=== PATIENT | male | born 1950 | race Caucasian/White ===

== ENCOUNTER 2017-12-31 23:29 | Inpatient (IN) ==
[2017-12-31] MEDS ORDERED: Nitroglycerin 1 INCH/GM PACKET TP ONE (23:38)
[2017-12-31] MEDS ORDERED: Aspirin 81 MG TAB.CHEW PO ONE (23:38)
[2017-12-31] MEDS ORDERED: *HR* Metoprolol 5 MG/5 ML VIAL IVP ONE (23:50)
--- NOTE | 2017-12-31 23:59 | Emergency Department Note ---
Disposition Clinical Impression: Elevated troponin, Hypoxia CHF (congestive heart failure) Qualifiers: Heart failure type: systolic Heart failure chronicity: acute on chronic Qualified Code(s): I50.23 - Acute on chronic systolic (congestive) heart failure Disposition: Admitted As Inpatient Condition: Undetermined Chest Pain HPI - General Chief Complaint: ED Chest Pain Stated Complaint: chest pain Time Seen by Provider: 12/31/17 23:37 Source: patient, EMS Mode of arrival: EMS Limitations: no limitations Vital Signs Reviewed: Yes Nursing Notes Reviewed: Yes - History of Present Illness HPI Narrative: 67-year-old male with a history of COPD, chronic kidney disease stage III, A. fib on Coumadin, GI bleed, CVA, previous MIs, pacemaker/AICD presents to the emergency department via EMS for evaluation having chest pain that started around 7 PM this evening. Patient states that he last few days he has had increase in difficulty in breathing despite using his breathing treatments and inhalers for his COPD, this evening as 7 PM he started having heavy, pressurize chest pain that was a 7/10. He let ago for a while the stated the chest pain did not resolve itself and he was having increased difficulty in breathing so he notified EMS who picked him up. In route patient blood pressure was greater than 200 systolic say he was given 1 nitroglycerin tab sugars chest pain from an 8/10 to a 3/10 and dropped his blood pressure to systolics 140s to systolic 160s. Patient also requiring 4 L of O2 in route and he is not on any oxygen at home. At this time patient came to the ED his chest pain had resolved. Patient denies coughing, fever, chills, nausea, vomiting, diarrhea, edema. Patient states difficulty in breathing has become progressively worse. He states difficulty in breathing at rest alone while he is exerting himself. Notable medications include Lasix, Lipitor, coronary leg, and Coumadin. Pt complaint: chest pain, other Onset (ago): hour(s) Time: 19:00 Duration: constant, gradually worsening Onset: during rest Pain Location: substernal, left chest Severity: now resolved Severity scale (1-10): 0 Quality: tightness, aching, heaviness Improves with: nitroglycerin Treatments prior to arrival chest pain: nitroglycerin, oxygen - Related Data Home Medications Medication Instructions Recorded Confirmed Aspirin Enteric Coated [Aspirin EC] 81 mg PO DAILY 12/30/15 12/30/15 Atorvastatin [Lipitor] 40 mg PO QPM 12/30/15 12/30/15 Carvedilol [Coreg] 12.5 mg PO BID 12/30/15 12/30/15 Docusate [Colace] 100 mg PO BID 12/30/15 12/30/15 Furosemide [Lasix] 40 mg PO BID 12/30/15 12/30/15 Ipratropium/Albuterol Sulfate 2 puff IH QID 12/30/15 12/30/15 [Combivent Respimat Inhal Malo] Quinapril HCl [Accupril] 10 mg PO DAILY 12/30/15 12/30/15 Previous Rx's Medication Instructions Recorded Calcium Polycarbophil [Fibercon] 1,250 mg PO DAILY #60 tablet 01/04/16 Sennosides/Docusate Sodium [Senna 1 each PO DAILY #30 tablet 01/04/16 Plus] levoFLOXacin [Levofloxacin] 750 mg PO DAILY #6 tablet 07/25/16 Allergies Allergy/AdvReac Type Severity Reaction Status Date / Time nitroglycerin AdvReac Hypotension Verified 12/30/15 14:26 All systems ED: reviewed and negative except as stated. Review of Systems: As Per HPI Chest Pain PMH - Past Medical History Medical history: Reports: CHF, coronary artery disease, CVA, hypertension, myocardial infarction, renal disease Psychiatric history: Reports: no psych history - Social History Smoking Status: Former smoker Alcohol use: Reports: none Drug use: Reports: none Physical Exam - General Limitations: no limitations General appearance: alert, in no apparent distress - Head Head exam: atraumatic, normocephalic, normal inspection - Eye Eye exam: Present: normal appearance, PERRL, EOMI - ENT ENT exam: mucous membranes moist - Neck Neck exam: Present: normal inspection, full ROM, trachea midline - Chest Chest inspection: Present: normal inspection, symmetric chest wall rise - Respiratory Respiratory exam: Present: normal lung sounds bilaterally, respiratory distress , accessory muscle use, prolonged expiratory phase - Expanded Respiratory Exam Location: decreased breath sounds: Left, Right, Lower - Cardiovascular Cardiovascular exam: Present: tachycardia, irregular rhythm - Abdominal Exam Abdominal exam: Present: soft, Non-Tender, normal bowel sounds, mass. Absent: tenderness - Expanded Lower Extremity Exam Neurovascular/Tendon exam: Present: normal capillary refill. Absent: pulse deficit - Back Exam Back exam: Present: normal inspection, full ROM. Absent: tenderness - Neurological Exam Neurological exam: Present: alert, oriented X3 - Psychiatric Psychiatric exam: Present: normal affect, normal mood - Skin Skin exam: Present: warm, dry, intact, normal color Course Course Narrative: 67-year-old male in moderate amount of respiratory distress. Patient noted to only speak 3 or 4 words with each respiration. At this time patient is not complaining of chest pain, however blood pressure remains hypertensive, heart rate mildly tachycardic at 111, irregular, no peripheral edema. EKG shows A. fib RVR without any significant changes from previous EKG. Patient noted to be on 4 L nasal cannula 97% O2. Lungs clear, diminished. Abdomen with a large round and protuberant fluctuants area. Bowel sounds 4. Concern for NC, pneumonia, respiratory failure, PE despite Coumadin usage. We will obtain laboratory work, chest x-ray, CT of abdomen and pelvis reevaluate. Treat with aspirin, Nitropaste. Patient on Coumadin 4 mg daily already. - Reevaluation(s) Reevaluation #1: Patient was placed on BiPAP and within 20 minutes states he is feeling considerably better. We are still pending several labs. Noted with INR subtherapeutic at 1.6, no systemic infection noted as patient does not have a white count or shift. Continue depends CT abdomen and pelvis as well as chest x -ray BMP, troponins, rest of labs. Time: 00:30 Reevaluation #2: Troponin returns 0.06, CT abdomen and pelvis shows ventral hernia and obesity such a lower lobes, chest x-ray shows obesities with possible pneumonia if clinically correlated. Heart rate continues to range from 96-102, blood pressure come considerably better after application of Nitropaste. Patient tolerating BiPAP well states feels considerably better continues to deny chest pain. We will initiate heparin drip due to elevated troponin and sub- therapeutic Coumadin. Spoke with patient regarding need for admission for continuing monitoring. Patient agreeable. CHF/hypoxia, elevated troponin. Spoke with hospitalist who is agreeable to take patient for inpatient admission. Dr. Doe is had one-on-one face time with patient is agreeable plan of care. Time: 01:32 Vital Signs Temperature 98.2 F 12/31/17 23:31 Pulse Rate 119 12/31/17 23:31 Respiratory Rate 20 12/31/17 23:31 Blood Pressure 197/136 12/31/17 23:31 O2 Sat by Pulse Oximetry 95 12/31/17 23:31 Temperature 98 F 01/01/18 04:48 Pulse Rate 109 01/01/18 02:45 Respiratory Rate 17 01/01/18 03:30 Blood Pressure 123/95 01/01/18 02:45 O2 Sat by Pulse Oximetry 97 01/01/18 03:30 Oxygen Delivery Oxygen Delivery Room Air Chest Pain - Differential Diagnosis Likely: unstable angina pectoris, atypical chest pain, chest pain. Unlikely: fracture of rib, pneumothorax, stable angina, st elevation myocardial infraction - Medical Records Medical records reviewed: Yes I reviewed the patient's medical records. - Lab Data Lab results reviewed: Yes I reviewed the patient's lab results. Result diagrams: 12/31/17 23:58 12/31/17 23:38 Lab Results 12/31/17 12/31/17 12/31/17 Range/Units 23:38 23:58 23:58 WBC (4.3-11.1) K/mcL RBC (4.19-5.50) M/mcL Hgb (12.9-16.9) g/dL Hct (37.5-50.1) % MCV (83.0-100.0) fL MCH (28.0-33.3) pg MCHC (31.6-35.5) g/dL RDW (11.5-14.5) % Plt Count (140-400) K/mcL MPV (9.4-12.4) fL Immature Gran % (0-4) % Seg Neutrophils % % Lymphocytes % % Monocytes % % Eosinophils % % Basophils % % Neutrophils # (1.6-8.9) K/mcL Lymphocytes # (0.6-4.6) K/mcL Monocytes # (0.0-1.3) K/mcL Eosinophils # (0.0-0.6) K/mcL Basophils # (0.0-0.2) K/mcL PT 17.5 H (9.4-12.1) Seconds INR 1.6 APTT 29.7 (26.0-36.0) Seconds D-Dimer 1218 H (0-500) ng/mLFEU VBG pH (7.32-7.42) pH Units VBG pCO2 (41-51) mmHg VBG pO2 (25-50) mmHg VBG HCO3 (21-27) mEq/L Sodium 140 (136-145) mEq/L Potassium 4.6 (3.5-5.1) mEq/L Chloride 104 (98-107) mEq/L Carbon Dioxide 27 (23-29) mEq/L BUN 28 H (8-23) mg/dL Creatinine 1.58 H (0.70-1.30) mg/dL Est GFR ( Amer) 53 L (> 60) Est GFR (Non-Af Amer) 44 L (> 60) BUN/Creatinine Ratio 18 (6-26) Glucose 148 H (70-105) mg/dL Calculated Osmolality 298 (280-300) Lactic Acid (0.5-2.2) mmol/L Calcium 9.1 (8.6-10.3) mg/dL Total Bilirubin 1.1 H (0.3-1.0) mg/dL Direct Bilirubin 0.2 (0.0-0.2) mg/dL Indirect Bilirubin 0.9 (0.0-1.2) mg/dL AST 36 (13-39) Units/L ALT 29 (7-52) Units/L Alkaline Phosphatase 100 (34-104) Units/L Troponin I (< 0.04) ng/mL B-Natriuretic Peptide 477 H (Less than 100) pg/mL Serum Total Protein 7.4 (6.4-8.9) g/dL Albumin 4.2 (3.5-5.7) g/dL Globulin 3.2 (2.4-3.5) g/dL Albumin/Globulin Ratio 1.3 (1.1-2.2) Urine Color (Yellow) Urine Clarity (Clear) Urine pH (5.0-8.0) pH Units Ur Specific [employer] (1.010-1.025) Urine Protein (Neg-Trace) mg/dL Urine Glucose (UA) (Normal) mg/dL Urine Ketones (Negative) mg/dL Urine Blood (Negative) Urine Nitrite (Negative) Urine Bilirubin (Negative) Urine Urobilinogen (Normal) mg/dL Ur Leukocyte Esterase (Negative) Urine Microscopic RBC (0-3) per hpf Urine Microscopic WBC (0-3) per hpf Ur Squamous Epith Cells (None-Few) per lpf Urine Bacteria (None-Few) per hpf Hyaline Casts (None-Few) per lpf Ur Culture Indicated? (NO) 12/31/17 12/31/17 12/31/17 Range/Units 23:58 23:58 23:58 WBC 8.3 (4.3-11.1) K/mcL RBC 4.79 (4.19-5.50) M/mcL Hgb 14.2 (12.9-16.9) g/dL Hct 42.7 (37.5-50.1) % MCV 89.1 (83.0-100.0) fL MCH 29.6 (28.0-33.3) pg MCHC 33.3 (31.6-35.5) g/dL RDW 15.9 H (11.5-14.5) % Plt Count 197 (140-400) K/mcL MPV 10.6 (9.4-12.4) fL Immature Gran % 0.5 (0-4) % Seg Neutrophils % 73.6 % Lymphocytes % 12.6 % Monocytes % 9.3 % Eosinophils % 3.2 % Basophils % 0.8 % Neutrophils # 6.1 (1.6-8.9) K/mcL Lymphocytes # 1.0 (0.6-4.6) K/mcL Monocytes # 0.8 (0.0-1.3) K/mcL Eosinophils # 0.3 (0.0-0.6) K/mcL Basophils # 0.1 (0.0-0.2) K/mcL PT (9.4-12.1) Seconds INR APTT (26.0-36.0) Seconds D-Dimer (0-500) ng/mLFEU VBG pH (7.32-7.42) pH Units VBG pCO2 (41-51) mmHg VBG pO2 (25-50) mmHg VBG HCO3 (21-27) mEq/L Sodium (136-145) mEq/L Potassium (3.5-5.1) mEq/L Chloride (98-107) mEq/L Carbon Dioxide (23-29) mEq/L BUN (8-23) mg/dL Creatinine (0.70-1.30) mg/dL Est GFR ( Amer) (> 60) Est GFR (Non-Af Amer) (> 60) BUN/Creatinine Ratio (6-26) Glucose (70-105) mg/dL Calculated Osmolality (280-300) Lactic Acid 1.4 (0.5-2.2) mmol/L Calcium (8.6-10.3) mg/dL Total Bilirubin (0.3-1.0) mg/dL Direct Bilirubin (0.0-0.2) mg/dL Indirect Bilirubin (0.0-1.2) mg/dL AST (13-39) Units/L ALT (7-52) Units/L Alkaline Phosphatase (34-104) Units/L Troponin I 0.06 H* (< 0.04) ng/mL B-Natriuretic Peptide (Less than 100) pg/mL Serum Total Protein (6.4-8.9) g/dL Albumin (3.5-5.7) g/dL Globulin (2.4-3.5) g/dL Albumin/Globulin Ratio (1.1-2.2) Urine Color (Yellow) Urine Clarity (Clear) Urine pH (5.0-8.0) pH Units Ur Specific [employer] (1.010-1.025) Urine Protein (Neg-Trace) mg/dL Urine Glucose (UA) (Normal) mg/dL Urine Ketones (Negative) mg/dL Urine Blood (Negative) Urine Nitrite (Negative) Urine Bilirubin (Negative) Urine Urobilinogen (Normal) mg/dL Ur Leukocyte Esterase (Negative) Urine Microscopic RBC (0-3) per hpf Urine Microscopic WBC (0-3) per hpf Ur Squamous Epith Cells (None-Few) per lpf Urine Bacteria (None-Few) per hpf Hyaline Casts (None-Few) per lpf Ur Culture Indicated? (NO) 01/01/18 01/01/18 Range/Units 00:09 00:10 WBC (4.3-11.1) K/mcL RBC (4.19-5.50) M/mcL Hgb (12.9-16.9) g/dL Hct (37.5-50.1) % MCV (83.0-100.0) fL MCH (28.0-33.3) pg MCHC (31.6-35.5) g/dL RDW (11.5-14.5) % Plt Count (140-400) K/mcL MPV (9.4-12.4) fL Immature Gran % (0-4) % Seg Neutrophils % % Lymphocytes % % Monocytes % % Eosinophils % % Basophils % % Neutrophils # (1.6-8.9) K/mcL Lymphocytes # (0.6-4.6) K/mcL Monocytes # (0.0-1.3) K/mcL Eosinophils # (0.0-0.6) K/mcL Basophils # (0.0-0.2) K/mcL PT (9.4-12.1) Seconds INR APTT (26.0-36.0) Seconds D-Dimer (0-500) ng/mLFEU VBG pH 7.42 (7.32-7.42) pH Units VBG pCO2 44 (41-51) mmHg VBG pO2 104 H (25-50) mmHg VBG HCO3 29 H (21-27) mEq/L Sodium (136-145) mEq/L Potassium (3.5-5.1) mEq/L Chloride (98-107) mEq/L Carbon Dioxide (23-29) mEq/L BUN (8-23) mg/dL Creatinine (0.70-1.30) mg/dL Est GFR ( Amer) (> 60) Est GFR (Non-Af Amer) (> 60) BUN/Creatinine Ratio (6-26) Glucose (70-105) mg/dL Calculated Osmolality (280-300) Lactic Acid (0.5-2.2) mmol/L Calcium (8.6-10.3) mg/dL Total Bilirubin (0.3-1.0) mg/dL Direct Bilirubin (0.0-0.2) mg/dL Indirect Bilirubin (0.0-1.2) mg/dL AST (13-39) Units/L ALT (7-52) Units/L Alkaline Phosphatase (34-104) Units/L Troponin I (< 0.04) ng/mL B-Natriuretic Peptide (Less than 100) pg/mL Serum Total Protein (6.4-8.9) g/dL Albumin (3.5-5.7) g/dL Globulin (2.4-3.5) g/dL Albumin/Globulin Ratio (1.1-2.2) Urine Color Yellow (Yellow) Urine Clarity Clear (Clear) Urine pH 6.5 (5.0-8.0) pH Units Ur Specific [employer] 1.021 (1.010-1.025) Urine Protein 30 H (Neg-Trace) mg/dL Urine Glucose (UA) Normal (Normal) mg/dL Urine Ketones Negative (Negative) mg/dL Urine Blood Negative (Negative) Urine Nitrite Negative (Negative) Urine Bilirubin Negative (Negative) Urine Urobilinogen Normal (Normal) mg/dL Ur Leukocyte Esterase Negative (Negative) Urine Microscopic RBC 3-5 H (0-3) per hpf Urine Microscopic WBC 0-3 (0-3) per hpf Ur Squamous Epith Cells Many H (None-Few) per lpf Urine Bacteria None Seen (None-Few) per hpf Hyaline Casts None Seen (None-Few) per lpf Ur Culture Indicated? NO (NO) - Radiology Data Radiology results reviewed: Yes I reviewed the patient's radiology results. Chest X-Ray 01/01/18 23:38 IMPRESSION: Patchy alveolar opacity bilaterally. Pulmonary edema is primarily considered. Correlate with any clinical evidence of pneumonia. D/ / Ashwin Elias MD / Ashwin Elias MD Interpreting Provider: Ashwin Elias MD Abdomen/Pelvis CT 01/01/18 23:47 IMPRESSION: No acute intra-abdominal abnormality detected. Re- demonstration of a large ventral wall hernia containing nondilated loops of large and small bowel, as well is a portion of the stomach. There is evidence of interlobular septal thickening and ground-glass opacity within the lower lungs. Correlate with clinical evidence of pulmonary edema. D/ / Ashwin Elias MD / Ashwin Elias MD Interpreting Provider: Ashwin Elias MD - EKG Data EKG attestation: Yes I reviewed and interpreted this EKG. EKG results narrative: EKG reveals A. fib with RVR possible anterior septal myocardial infarction of indeterminate age. As a rate 111 and A. fib. Compared to most recent EKG obtained on 04/28 there are no acute changes, anteroseptal myocardial infarction of indeterminate age on this one as well. No sign of significant ST elevation or depression. Interpretation: unchanged when compared to prior tracing (date) Heart Score - Score History: Highly Suspicious EKG: Normal Age: Greater than 65 Risk Factors: Equal/Greater than 3 risk factor or history of atherosclerotic disease Troponin: 1-3x normal limit HEART Score Total: 7 Attestation Statement - Attestation Attestation: I have personally performed a face to face evaluation on this patient. I have reviewed and agree with the care plan. History and Exam by me shows: Findings consistent with dyspnea. Patient has CT scan of the abdomen and pelvis to rule out obstruction due to distended abdomen and this shows nonobstructive in nature. Patient be admitted for further management of chest pain in the setting of dyspnea
[2018-01-01 00:15] LABS: Basophils # 0.1 K/mcL (0.0-0.2); Basophils % 0.8 %; Eosinophils # 0.3 K/mcL (0.0-0.6); Eosinophils % 3.2 %; Hematocrit 42.7 % (37.5-50.1); Hemoglobin 14.2 g/dL (12.9-16.9); Immature Granulocytes % 0.5 % (0-4); Lymphocytes % 12.6 %; Mean Corpuscular HGB Conc 33.3 g/dL (31.6-35.5); Mean Corpuscular Hemoglobin 29.6 pg (28.0-33.3); Mean Corpuscular Volume 89.1 fL (83.0-100.0); Mean Platelet Volume 10.6 fL (9.4-12.4); Monocytes # 0.8 K/mcL (0.0-1.3); Monocytes % 9.3 %; Neutrophils # 6.1 K/mcL (1.6-8.9); Platelet Count 197 K/mcL (140-400); Red Blood Count 4.79 M/mcL (4.19-5.50); Red Cell Distribution Width 15.9 % (11.5-14.5); Segmented Neutrophils % 73.6 %
[2018-01-01 00:17] LABS: VBG HCO3 29 mEq/L (21-27); VBG PCO2 44 mmHg (41-51); VBG PH 7.42 pH Units (7.32-7.42); VBG PO2 104 mmHg (25-50)
[2018-01-01 00:20] LABS: INR 1.6; Prothrombin Time 17.5 Seconds (9.4-12.1)
[2018-01-01 00:23] LABS: Activated Partial Thrombo Time 29.7 Seconds (26.0-36.0)
[2018-01-01 00:26] LABS: Bilirubin,Urine Negative (Negative); Blood,Urine Negative (Negative); Clarity,Urine Clear (Clear); Color,Urine Yellow (Yellow); Glucose,Urine (UA) Normal (Normal); Ketones,Urine Negative (Negative); Leukocyte Esterase,Urine Negative (Negative); Nitrite,Urine Negative (Negative); PH,Urine 6.5 pH Units (5.0-8.0); Protein,Urine 30 mg/dL (Neg-Trace); Specific Gravity,Urine 1.021 (1.010-1.025); Urobilinogen,Urine Normal (Normal)
[2018-01-01 00:29] LABS: Bacteria,Urine None Seen per hpf (None-Few); Hyaline Casts,Urine None Seen per lpf (None-Few); Squamous Epithelial Cell,Urine Many per lpf (None-Few); WBC,Urine 0-3 per hpf (0-3)
[2018-01-01 00:36] LABS: Albumin 4.2 g/dL (3.5-5.7); Albumin/Globulin Ratio 1.3 (1.1-2.2); Bilirubin,Direct 0.2 mg/dL (0.0-0.2); Bilirubin,Indirect 0.9 mg/dL (0.0-1.2); Bilirubin,Total 1.1 mg/dL (0.3-1.0); Calcium 9.1 mg/dL (8.6-10.3); Globulin 3.2 g/dL (2.4-3.5); Potassium 4.6 mEq/L (3.5-5.1); Total Protein 7.4 g/dL (6.4-8.9)
[2018-01-01] MEDS ORDERED: Furosemide 40 MG/4 ML VIAL IVP ONE (01:38)
[2018-01-01] MEDS: Heparin 25,000 UNIT/500 ML D5W 25,000 UNIT/500 ML BAG IVC SCH ×2 (01:45→20:27)
--- NOTE | 2018-01-01 02:06 | Internal Med History&Physical ---
<Abhilash Jean - Last Filed: 01/01/18 02:46> Date of Encounter: 01/01/18 Time of Encounter: 01:53 Internal Medicine - H&P: HPI Chief complaint: chest pain Admitted From: Home Plans for Post Hospital Care: Home History of present illness: Mr. Hickey is a 67 year old male w/ pmh of COPD, CKD3, afib, GI bleed, large abd hernia, TIA, CAD, pacemaker, AICD presents with sharp/pressure chest pain that started at 7 pm while at rest. Pain radiates to back but not up neck or down arm. denies numbness, tingling, nausea, vomiting, diaphoresis. Patient has had pain like this about once a week which has resolved with taking aspirin. Patient took aspirin tonight whcih did not resolve his symptoms. Patient is currently not having chest pain after receiving nitroglycerin in the ED. Patient was seen with Bipap on. Patient was having shortness of breath and was hypoxic. Patient was then placed on bipap. Patient when seen states he's comfortable and not SOB on bipap. Patient is not O2 dependent at home. Past Med Surg Social Fam HX - Past Medical History Medical history: CHF, coronary artery disease, CVA, hypertension, myocardial infarction, renal disease Psychiatric history: no psych history - Social History Smoking Status: Former smoker Smokeless Tobacco Status: No Alcohol use: none Drug use: none - Family History Mother Living Status: Hx Family Cardiac Disorders: Yes (AK) Hx Family Respiratory Disorders: Yes (TB) Father Living Status: Hx Family Respiratory Disorders: Yes (COPD) Internal Medicine - H&P: Meds Aspirin Enteric Coated [Aspirin EC] 81 mg PO DAILY 12/30/15 [History] Atorvastatin [Lipitor] 40 mg PO QPM 12/30/15 [History] Carvedilol [Coreg] 12.5 mg PO BID 12/30/15 [History] Docusate [Colace] 100 mg PO BID 12/30/15 [History] Furosemide [Lasix] 40 mg PO BID 12/30/15 [History] Ipratropium/Albuterol Sulfate [Combivent Respimat Inhal [place]] 2 puff IH QID [History] Quinapril HCl [Accupril] 10 mg PO DAILY 12/30/15 [History] Calcium Polycarbophil [Fibercon] 1,250 mg PO DAILY #60 tablet 01/04/16 [Rx] Sennosides/Docusate Sodium [Senna Plus] 1 each PO DAILY #30 tablet 01/04/16 [Rx] levoFLOXacin [Levofloxacin] 750 mg PO DAILY #6 tablet 07/25/16 [Rx] 3 Allergy/AdvReac Type Severity Reaction Status Date / Time nitroglycerin AdvReac Hypotension Verified 12/30/15 14:26 All Systems PM: A 10-system review of systems was performed and is negative for pertinent findings except as documented above in the HPI. - Constitutional Constitutional: no chills, no excessive sweating, no fatigue, no fever(s), no lethargy, no malaise, no night sweats - EENT Eyes: no change in vision, no discharge, no pain, no photophobia Ears: no ear discharge, no ear pain, no tinnitus Nose, mouth and throat: no dysphagia, no nasal discharge, no neck pain, no sore throat - Cardiovascular Cardiovascular ROS IM: no chest pain, no diaphoresis, no dyspnea, no dyspnea on exertion, no edema, no irregular heart rhythm, no lightheadedness, no orthopnea , no palpitations, no paroxysmal nocturnal dyspnea, no syncope - Respiratory Respiratory: no cough, no dyspnea, no wheezing, no excessive phlegm production - Gastrointestinal Gastrointestinal: no abdominal pain, no diarrhea, no hematemesis, no hematochezia, no melena, no nausea, no vomiting - Musculoskeletal Musculoskeletal ROS IM: no numbness, no tingling - Integumentary Integumentary IM: no rash, no unusual bruising - Neurological Neurological ROS: no confusion, no convulsions, no focal weakness, no numbness, no tingling, no tremor(s) - Hematologic/Lymphatic Hematologic/Lymphatic: no easy bruising - Constitutional Vitals: Temp Pulse Resp BP Pulse Ox 98.2 F 106 18 149/98 97 12/31/17 23:31 01/01/18 01:10 01/01/18 01:10 01/01/18 01:10 01/01/18 01:10 General appearance: Present: cooperative, A&O X 3, pleasant, no acute distress, answers questions appropriately - Head Head exam: Present: atraumatic, normocephalic - Eye Eye exam: Present: PERRL, conjuntiva pink, sclera anicteric Pupils: Present: PERRL - Neck Neck exam general surgery: Present: supple, trachea midline. Absent: lymphadenopathy, thyromegaly - Respiratory Respiratory exam: Absent: accessory muscle use, rales, respiratory distress, rhonchi, wheezes Additional comments: Transmitted breath sounds from bipap - Cardiovascular Cardiovascular exam: Present: irregular rhythm. Absent: diastolic murmur, gallop, JVD, rubs, systolic murmur, tachycardia - GI/Abdominal GI/Abdominal exam: Present: hernia, hypoactive bowel sounds, soft, no peritoneal signs. Absent: distended, rebound, rigid, splenomegaly, tenderness Additional comments: large lower abdominal herniation - Extremities Exam Extremities exam: Present: warm, radial pulses palpable and symmetrical. Absent : calf tenderness, cyanotic, pedal edema - Neurological Exam Neurological exam: Present: CN II-XII intact, oriented X3, no focal deficits. Absent: pronater drift, facial droop, speech deficit - Skin Skin exam: Present: dry, intact Internal Med - H&P Results - Labs CBC & Chem 7: 12/31/17 23:58 12/31/17 23:38 Labs: Short CBC 12/31/17 Range/Units 23:58 WBC 8.3 (4.3-11.1) K/mcL Hgb 14.2 (12.9-16.9) g/dL Hct 42.7 (37.5-50.1) % Plt Count 197 (140-400) K/mcL Neutrophils # 6.1 (1.6-8.9) K/mcL BMP 12/31/17 23:38 Sodium 140 Potassium 4.6 Chloride 104 Carbon Dioxide 27 BUN 28 H Creatinine 1.58 H Glucose 148 H Calcium 9.1 Cardiac Enzymes 12/31/17 Range/Units 23:58 Troponin I 0.06 H* (< 0.04) ng/mL Liver Function 12/31/17 Range/Units 23:38 Total Bilirubin 1.1 H (0.3-1.0) mg/dL Direct Bilirubin 0.2 (0.0-0.2) mg/dL AST 36 (13-39) Units/L ALT 29 (7-52) Units/L Alkaline Phosphatase 100 (34-104) Units/L Albumin 4.2 (3.5-5.7) g/dL Urine 01/01/18 Range/Units 00:09 Urine Color Yellow (Yellow) Urine Clarity Clear (Clear) Urine pH 6.5 (5.0-8.0) pH Units Ur Specific [place] 1.021 (1.010-1.025) Urine Protein 30 H (Neg-Trace) mg/dL Urine Glucose (UA) Normal (Normal) mg/dL - ABG Interpretation ABG results: 01/01/18 00:10 VBG pH 7.42 VBG pCO2 44 VBG pO2 104 H VBG HCO3 29 H - Impressions ITS Impressions Chest X-Ray 01/01/18 23:38 IMPRESSION: Patchy alveolar opacity bilaterally. Pulmonary edema is primarily considered. Correlate with any clinical evidence of pneumonia. D/ / Ashwin Elias MD / Ashwin Elias MD Interpreting Provider: Ashwin Elias MD Abdomen/Pelvis CT 01/01/18 23:47 IMPRESSION: No acute intra-abdominal abnormality detected. Re- demonstration of a large ventral wall hernia containing nondilated loops of large and small bowel, as well is a portion of the stomach. There is evidence of interlobular septal thickening and ground-glass opacity within the lower lungs. Correlate with clinical evidence of pulmonary edema. D/ / Ashwin Elias MD / Ashwin Elias MD Interpreting Provider: Ashwin Elias MD - Assessment and plan (1) NSTEMI (non-ST elevated myocardial infarction) Current Visit: Yes Status: Acute Assessment and plan: see above (2) Acute on chronic kidney failure Current Visit: Yes Status: Acute Assessment and plan: Known CKD3. Cr on admission 1.58, baseline is 1.2. will closely follow, will consult nephro if does not resolve. - renal dose, avoid nephrotoxins - strict I/O Qualifiers: Qualified Code(s): N17.9 - Acute kidney failure, unspecified; N18.3 - Chronic kidney disease, stage 3 (moderate) (3) Chest pain Current Visit: Yes Status: Resolved Assessment and plan: see above. Qualifiers: Chest pain type: unspecified Qualified Code(s): R07.9 - Chest pain, unspecified (4) Chronic atrial fibrillation Current Visit: Yes Status: Chronic Assessment and plan: currently rate controlled but not rhythm controlled. Patient on exam is in afib. (5) Chronic renal disease, stage 3, moderately decreased glomerular filtration rate (GFR) between 30-59 mL/min/1.73 square meter Current Visit: Yes Status: Chronic Assessment and plan: chronic (6) GI bleed Current Visit: Yes Status: Resolved Assessment and plan: known hx of GI bleed. patient hgb is 14.2 on admission, patient is high ris, and will closely follow for symptoms and h/h. Due to heparinization, high risk for GI bleed. Will prophylactically start on Protonix. Qualifiers: GI bleed type/associated pathology: melena Qualified Code(s): K92.1 - Melena (7) Abdominal hernia without obstruction or gangrene Current Visit: Yes Status: Acute Assessment and plan: chronic. patient has multiple surgerical repairs. Large abdominal herniation is stable and does not appear to have bowel Qualifiers: Qualified Code(s): K46.9 - Unspecified abdominal hernia without obstruction or gangrene (8) DVT prophylaxis Current Visit: Yes Status: Acute Assessment and plan: patient is heparinized. (9) COPD (chronic obstructive pulmonary disease) Current Visit: Yes Status: Acute Assessment and plan: currently hypoxic requiring bipap. Patient is currently stable on bipap. - provide respiratory support with O2, bipap, and duoneb Qualifiers: Qualified Code(s): J44.9 - Chronic obstructive pulmonary disease, unspecified (10) Hypertension Current Visit: Yes Status: Acute Assessment and plan: continue home rx Qualifiers: Qualified Code(s): I10 - Essential (primary) hypertension (11) Congestive heart failure Current Visit: Yes Status: Acute Assessment and plan: Patient has known previous AK. Patient has trop of 0.06 and BNP 477. No Ischemic changes on EKG. Presumptive CHF exacerbation vs NSTEMI. Patient does have SOB requiring O2 support, and pulmonary edema on CXR and CT Patient has significant risk factors, MATT score 5-6. Chest pain could also be demand ischemia from COPD/guido. D-Dimer is 1218, low risk will order VQ scan due to GUIDO - Cardiology consult - trend trops - patient was heparinized in ED - no previous echo found, ordered echo - morning labs - cardiac diet - ASA81, O2 support <92%, nitro, BB - patient was given plavix in ED, and ASA 324 in ED - lipid panel - will also treat for CHF: Lasix (closely follow due to current GUIDO) - VQ scan ordered Qualifiers: Heart failure type: systolic Heart failure chronicity: acute on chronic Qualified Code(s): I50.23 - Acute on chronic systolic (congestive) heart failure - Time Spent With Patient Total time spent is greater than 50% in coordination of care (as documented) at patient's floor/unit and/or counseling patient: <Keith Michel - Last Filed: 01/01/18 03:16> Date of Encounter: 01/01/18 Internal Medicine - H&P: HPI History of present illness: Mr. Hickey is a 67 year old male All Systems PM: A 10-system review of systems was performed and is negative for pertinent findings except as documented above in the HPI. - Constitutional Vitals: Temp Pulse Resp BP Pulse Ox 98.2 F 85 18 144/94 97 12/31/17 23:31 01/01/18 02:03 01/01/18 02:03 01/01/18 02:03 01/01/18 02:03 Internal Med - H&P Results - Labs CBC & Chem 7: 12/31/17 23:58 12/31/17 23:38 - Impressions ITS Impressions Chest X-Ray 01/01/18 23:38 IMPRESSION: Patchy alveolar opacity bilaterally. Pulmonary edema is primarily considered. Correlate with any clinical evidence of pneumonia. D/ / Ashwin Elias MD / Ashwin Elias MD Interpreting Provider: Ashwin Elais MD Abdomen/Pelvis CT 01/01/18 23:47 IMPRESSION: No acute intra-abdominal abnormality detected. Re- demonstration of a large ventral wall hernia containing nondilated loops of large and small bowel, as well is a portion of the stomach. There is evidence of interlobular septal thickening and ground-glass opacity within the lower lungs. Correlate with clinical evidence of pulmonary edema. D/ / Ashwin Elias MD / Ashwin Elias MD Interpreting Provider: Ashwin Elias MD - Attending Attestation I have seen and examined this patient independently. I have discussed with resident physician Dr Jean regarding the management plan. Agree with the documentation. Patient presented with left chest discomfort/pain with shortness of breath and desaturation. History of systolic CHF with EF 36%. Patient is on PPM/AICD, beta jaret, and FROY inhibitor. Patient has elevated BNP and chest x-ray shows pulmonary edema. Consider CHF exacerbation. Patient also has chest pain need to rule out ACS/NSTEMI. Patient has elevated d-dimer, however, his symptoms is most likely due to CHF exacerbation. Will continue heparin drip at this point, track 3 sets of troponin. VQ scan in a.m. to rule out PE. Place patient on Lasix, fluid restriction, strict I/O for CHF exacerbation. Closely monitor patient and continue supportive treatment. - Assessment and plan (1) Chest pain Current Visit: Yes Status: Resolved Qualifiers: Chest pain type: unspecified Qualified Code(s): R07.9 - Chest pain, unspecified (2) Chronic renal disease, stage 3, moderately decreased glomerular filtration rate (GFR) between 30-59 mL/min/1.73 square meter Current Visit: Yes Status: Chronic (3) GI bleed Current Visit: Yes Status: Resolved Qualifiers: GI bleed type/associated pathology: melena Qualified Code(s): K92.1 - Melena (4) Chronic atrial fibrillation Current Visit: Yes Status: Chronic (5) Abdominal hernia without obstruction or gangrene Current Visit: Yes Status: Acute Qualifiers: Qualified Code(s): K46.9 - Unspecified abdominal hernia without obstruction or gangrene (6) NSTEMI (non-ST elevated myocardial infarction) Current Visit: Yes Status: Acute (7) DVT prophylaxis Current Visit: Yes Status: Acute (8) Acute on chronic kidney failure Current Visit: Yes Status: Acute Qualifiers: Qualified Code(s): N17.9 - Acute kidney failure, unspecified; N18.3 - Chronic kidney disease, stage 3 (moderate) (9) COPD (chronic obstructive pulmonary disease) Current Visit: Yes Status: Acute Qualifiers: Qualified Code(s): J44.9 - Chronic obstructive pulmonary disease, unspecified (10) Hypertension Current Visit: Yes Status: Acute Qualifiers: Qualified Code(s): I10 - Essential (primary) hypertension (11) Congestive heart failure Current Visit: Yes Status: Acute Qualifiers: Heart failure type: systolic Heart failure chronicity: acute on chronic Qualified Code(s): I50.23 - Acute on chronic systolic (congestive) heart failure - Time Spent With Patient Total time spent is greater than 50% in coordination of care (as documented) at patient's floor/unit and/or counseling patient:
[2018-01-01] MEDS ORDERED: Ondansetron ODT 4 MG TAB.RAPDIS SL PRN (02:24)
[2018-01-01] MEDS ORDERED: Naloxone 0.4 MG/ML INJ IVP PRN (02:24)
[2018-01-01] MEDS ORDERED: Ipratropium/Albuterol Neb 3 ML IH PRN (02:40)
[2018-01-01] MEDS ORDERED: *HR* Metoprolol 5 MG/5 ML VIAL IVP PRN ×2 (02:55→03:21)
[2018-01-01 05:30] LABS: Basophils # 0.1 K/mcL (0.0-0.2); Basophils % 1.1 %; Eosinophils # 0.3 K/mcL (0.0-0.6); Eosinophils % 4.4 %; Hematocrit 41.1 % (37.5-50.1); Hemoglobin 13.7 g/dL (12.9-16.9); Immature Granulocytes % 0.1 % (0-4); Lymphocytes # 1.5 K/mcL (0.6-4.6); Lymphocytes % 20.4 %; Mean Corpuscular HGB Conc 33.3 g/dL (31.6-35.5); Mean Corpuscular Hemoglobin 29.9 pg (28.0-33.3); Mean Corpuscular Volume 89.7 fL (83.0-100.0); Mean Platelet Volume 10.8 fL (9.4-12.4); Monocytes # 0.7 K/mcL (0.0-1.3); Neutrophils # 4.7 K/mcL (1.6-8.9); Platelet Count 182 K/mcL (140-400); Red Blood Count 4.58 M/mcL (4.19-5.50)
[2018-01-01 05:31] LABS: INR 1.7; Prothrombin Time 18.5 Seconds (9.4-12.1)
[2018-01-01 05:46] LABS: Albumin 3.8 g/dL (3.5-5.7); Albumin/Globulin Ratio 1.3 (1.1-2.2); Bilirubin,Total 1.1 mg/dL (0.3-1.0); Calcium 8.6 mg/dL (8.6-10.3); Chol/HDL Ratio 3.8 (0-4.9); Globulin 2.9 g/dL (2.4-3.5); Magnesium 2.2 mg/dL (1.6-2.6); Phosphorous 3.8 mg/dL (2.7-4.5); Potassium 4.2 mEq/L (3.5-5.1); Total Protein 6.7 g/dL (6.4-8.9)
[2018-01-01] MEDS ORDERED: Pantoprazole 40 MG VIAL IVP SCH (06:30)
--- NOTE | 2018-01-01 08:55 | Internal Med Progress Note ---
Date of Encounter: 01/01/18 Time of Encounter: 08:40 - Assessment and plan (1) Congestive heart failure Current Visit: Yes Status: Acute Assessment and plan: Improving cont Lasix 40 IV BID cont BB , ASA and Statin 2D Echo 0 P Strict I & O Qualifiers: Heart failure type: systolic Heart failure chronicity: acute on chronic Qualified Code(s): I50.23 - Acute on chronic systolic (congestive) heart failure (2) Acute and chronic respiratory failure with hypoxia Current Visit: Yes Status: Acute Assessment and plan: Due to CHF exacerbation cont IV diuresis Duoneb PRN (3) Acute pulmonary edema Current Visit: Yes Status: Acute Assessment and plan: Due to CHF cont IV diuresis (4) NSTEMI (non-ST elevated myocardial infarction) Current Visit: Yes Status: Acute Assessment and plan: Trop trending high Placed him on heparin gtt since his INR therapeutic He does have acute possible systolic CHF exacerbation too May get benefit with [facility] Card consulted 2 D Echo - P Cont ASA, BB and Statin Keep him NPO for now Hold on Coumadin for further procedures if needed (5) Chest pain Current Visit: Yes Status: Resolved Assessment and plan: see above. Qualifiers: Chest pain type: unspecified Qualified Code(s): R07.9 - Chest pain, unspecified (6) Chronic renal disease, stage 3, moderately decreased glomerular filtration rate (GFR) between 30-59 mL/min/1.73 square meter Current Visit: Yes Status: Chronic Assessment and plan: CKD-3 Cr at baseline cont close monitoring (7) Chronic atrial fibrillation Current Visit: Yes Status: Chronic Assessment and plan: currently rate controlled BB Coreg Take Coumadin for anti coag (8) Abdominal hernia without obstruction or gangrene Current Visit: Yes Status: Acute Assessment and plan: chronic. patient has multiple surgerical repairs. Large abdominal herniation is stable and does not appear to have bowel Qualifiers: Qualified Code(s): K46.9 - Unspecified abdominal hernia without obstruction or gangrene (9) DVT prophylaxis Current Visit: Yes Status: Acute Assessment and plan: patient is heparinized. (10) Hypertension Current Visit: Yes Status: Acute Assessment and plan: continue home rx Qualifiers: Qualified Code(s): I10 - Essential (primary) hypertension - Time Spent With Patient Total time spent is greater than 50% in coordination of care (as documented) at patient's floor/unit and/or counseling patient: - Subjective Interval history: Mr. Hickey is a 67 year old male w/ pmh of COPD, CKD3, afib, GI bleed, large abd hernia, TIA, CAD, pacemaker, AICD presents with sharp/pressure chest pain while at rest. Pain radiates to back but not up neck or down arm. denies numbness, tingling, nausea, vomiting, diaphoresis. Patient has had pain like this about once a week which has resolved with taking aspirin. Patient took aspirin which did not resolve his symptoms now. However it got resolved last night with nitro. Pt also c/o shortness of breath and b/l LE edema. He denied any CP now. He is A, A, O x 3. Currently on 2 lit O2. Leg edema little better today - Constitutional Vitals: Temp Pulse Resp BP Pulse Ox 98 F 114 22 168/94 95 01/01/18 04:48 01/01/18 06:03 01/01/18 06:03 01/01/18 06:03 01/01/18 06:03 General appearance: Present: cooperative, A&O X 3, pleasant, no acute distress, answers questions appropriately - Head Head exam: Present: atraumatic, normal inspection - Neck Neck exam general surgery: Present: supple - Respiratory Respiratory exam: Present: decreased breath sounds, wheezes. Absent: rales, respiratory distress, rhonchi - Cardiovascular Cardiovascular exam: Present: irregular rhythm, +S1, +S2. Absent: tachycardia - GI/Abdominal GI/Abdominal exam: Present: normal bowel sounds, soft. Absent: rebound, rigid, tenderness - Extremities Exam Extremities exam: Present: pedal edema. Absent: calf tenderness, tenderness - Back Exam Back exam: Absent: CVA tenderness (L), CVA tenderness (R) - Neurological Exam Neurological exam: Present: alert, oriented X3 Internal Medicine: Result - Labs CBC & Chem 7: 01/01/18 05:01 01/01/18 05:01 Labs: Short CBC 01/01/18 Range/Units 05:01 WBC 7.3 (4.3-11.1) K/mcL Hgb 13.7 (12.9-16.9) g/dL Hct 41.1 (37.5-50.1) % Plt Count 182 (140-400) K/mcL Neutrophils # 4.7 (1.6-8.9) K/mcL BMP 01/01/18 05:01 Sodium 141 Potassium 4.2 Chloride 103 Carbon Dioxide 32 H BUN 31 H Creatinine 1.46 H Glucose 116 H Calcium 8.6 Cardiac Enzymes 01/01/18 01/01/18 Range/Units 05:01 07:53 Troponin I 0.78 H* 1.03 H* (< 0.04) ng/mL Liver Function 01/01/18 Range/Units 05:01 Total Bilirubin 1.1 H (0.3-1.0) mg/dL AST 30 (13-39) Units/L ALT 26 (7-52) Units/L Alkaline Phosphatase 90 (34-104) Units/L Albumin 3.8 (3.5-5.7) g/dL - ABG Interpretation ABG results: PT/INR, D-dimer PT 18.5 Seconds (9.4-12.1) H 01/01/18 05:01 D-Dimer 1218 ng/mLFEU (0-500) H 12/31/17 23:58 - Impressions Impressions Chest X-Ray 01/01/18 23:38 IMPRESSION: Patchy alveolar opacity bilaterally. Pulmonary edema is primarily considered. Correlate with any clinical evidence of pneumonia. D/ / Ashwin Elias MD / Ashwin Elias MD Interpreting Provider: Ashwin Elias MD Abdomen/Pelvis CT 01/01/18 23:47 IMPRESSION: No acute intra-abdominal abnormality detected. Re- demonstration of a large ventral wall hernia containing nondilated loops of large and small bowel, as well is a portion of the stomach. There is evidence of interlobular septal thickening and ground-glass opacity within the lower lungs. Correlate with clinical evidence of pulmonary edema. D/ / Ashwin Elias MD / Ashwin Elias MD Interpreting Provider: Ashwin Elias MD Consult Discharge Plan - Plan Referrals: Tung Torres DO [Primary Care Provider] -
[2018-01-01] MEDS: Sennosides/Docusate Sodium TABLET PO SCH (09:04)
[2018-01-01] MEDS: Furosemide 40 MG/4 ML VIAL IVP SCH ×2 (09:04→16:14)
[2018-01-01] MEDS: Aspirin 81 MG TAB.CHEW PO SCH (09:04)
--- NOTE | 2018-01-01 09:49 | Cardiology Consult Note ---
Date of Encounter: 01/01/18 Time of Encounter: 09:45 Assessment and Plan (1) NSTEMI (non-ST elevated myocardial infarction) Current Visit: Yes Status: Acute A/R/B of [facility] discussed with him including 1% chance of PR//CVA/CABG/SHELLEY/ bleeding - would likely wait until INR drifts down with stabilization of his renal function. He denies current chest discomfort and indicates he wants to go to [place] and would sign out AMA. Awaiting daughter/family arrival. (2) Chronic atrial fibrillation Current Visit: Yes Status: Chronic Continue rate control, heparin bridge with h/o CVA. (3) Chronic renal disease, stage 3, moderately decreased glomerular filtration rate (GFR) between 30-59 mL/min/1.73 square meter Current Visit: Yes Status: Chronic continue to monitor renal function Discussion w patient/family: The assessment and plan as outlined above was discussed with the patient and/or family members who expressed understanding and agreement. All questions were answered. Thank you for involving us in the care of your patient. Please call with any questions. History of Present Illness Consult date: 01/01/18 Consult reason: nstemi Chief complaint: chest pain History of present illness: Mr. Hickey is a 67 year old male with history of CAD sp PR remotely with PCI at [place] (patient states unspecified complications during procedure), CVA, COPD , CHF sp ICD (recent generator change) presents with severe chest discomfort last night that radiated across chest associated with dyspnea that improved with medical management. He states stress test was ordered by his mat making machine tender Dr. Lopez for burning pain in his chest recently (different than current presentation). He states he would like to go to [place] understanding we offer cardiac cath services here with on site surgical backup. Past Med Surg Social Fam HX - Past Medical History Medical history: CHF, coronary artery disease, CVA, hypertension, myocardial infarction, renal disease Psychiatric history: no psych history - Social History Smoking Status: Former smoker Smokeless Tobacco Status: No Alcohol use: none Drug use: none - Family History Mother Living Status: Hx Family Cardiac Disorders: Yes (PR) Hx Family Respiratory Disorders: Yes (TB) Father Living Status: Hx Family Respiratory Disorders: Yes (COPD) Medications and Allergies Aspirin Enteric Coated [Aspirin EC] 81 mg PO DAILY 12/30/15 [History] Atorvastatin [Lipitor] 40 mg PO QPM 12/30/15 [History] Carvedilol [Coreg] 12.5 mg PO BID 12/30/15 [History] Docusate [Colace] 100 mg PO BID 12/30/15 [History] Furosemide [Lasix] 40 mg PO BID 12/30/15 [History] Ipratropium/Albuterol Sulfate [Combivent Respimat Inhal [place]] 2 puff IH QID [History] Quinapril HCl [Accupril] 10 mg PO DAILY 12/30/15 [History] Calcium Polycarbophil [Fibercon] 1,250 mg PO DAILY #60 tablet 01/04/16 [Rx] Sennosides/Docusate Sodium [Senna Plus] 1 each PO DAILY #30 tablet 01/04/16 [Rx] levoFLOXacin [Levofloxacin] 750 mg PO DAILY #6 tablet 07/25/16 [Rx] 3 Allergy/AdvReac Type Severity Reaction Status Date / Time nitroglycerin AdvReac Hypotension Verified 12/30/15 14:26 All Systems Review: The remainder of the systems were reviewed and are negative - Constitutional Constitutional: no chills, no fever(s) - EENT Eyes: no blurred vision, no loss of vision Nose, mouth and throat: no dysphagia, no odynophagia - Cardiovascular Cardiovascular: chest pain at rest, chest pain with exertion - Respiratory Respiratory: cough, dyspnea - Gastrointestinal Gastrointestinal: no hematemesis, no hematochezia - Genitourinary Genitourinary: no hematuria, no nocturia - Musculoskeletal Musculoskeletal: no back pain, no myalgias - Integumentary Integumentary: no rash, no unusual bruising - Neurological Neurological: no syncope, no tingling - Psychiatric Psychiatric: no hallucinations, no panic attacks - Hematological/Lymphatic Hematologic/Lymphatic: no easy bleeding, no easy bruising Physical Examination Vital Signs, Last 4 Hours Temp Pulse Resp BP Pulse Ox 01/01/18 08:59 98.0 F 01/01/18 08:00 71 16 153/95 96 01/01/18 06:03 114 22 168/94 95 General: Conversant HEENT: Atraumatic Neck: No JVD Cardiac: Reg Rate and Rhythm Lungs: Other (occ wheeze) Neuro: Alert and responsive Abdomen: Soft Skin: No rashes noted on visualized skin Musculoskeletal: No Chest Wall Tenderness Extremities: No Edema Results 01/01/18 05:01 01/01/18 05:01 Lab Results 01/01/18 01/01/18 01/01/18 05:01 05:01 05:01 WBC 7.3 Hgb 13.7 Hct 41.1 Plt Count 182 INR APTT Sodium 141 Potassium 4.2 Chloride 103 Carbon Dioxide 32 H BUN 31 H Creatinine 1.46 H Glucose 116 H Calcium 8.6 Magnesium 2.2 Total Bilirubin 1.1 H AST 30 ALT 26 Alkaline Phosphatase 90 Troponin I 0.78 H* 01/01/18 01/01/18 01/01/18 05:01 07:53 07:53 WBC Hgb Hct Plt Count INR 1.7 APTT 73.9 H D Sodium Potassium Chloride Carbon Dioxide BUN Creatinine Glucose Calcium Magnesium Total Bilirubin AST ALT Alkaline Phosphatase Troponin I 1.03 H* Consult Discharge Plan - Plan Referrals: Tung Torres DO [Primary Care Provider] -
--- NOTE | 2018-01-01 10:12 | Electrocardiograph Report ---
[address] [place], [place] [address] Test Date: 2017-12-31 Pat Name: Carlos Hickey Department: 102 Room: 11 Gender: M Assistant Paralegal: Saritha : 1950 Requested By: [id number] Order Number: [id number] Reading MD: Kamar Mcguire Measurements Intervals [place] Rate: 111 P: OK: 0 QRS: 3 QRSD: 97 T: 94 QT: 318 QTc: 384 Interpretive Statements ATRIAL FIBRILLATION WITH RAPID VENTRICULAR RESPONSE ANTEROSEPTAL MYOCARDIAL INFARCTION OF INDETERMINATE AGE Electronically Signed On 01-01-2018 10:10:04 EDT by Kamar Mcguire
[2018-01-01] MEDS ORDERED: Warfarin perPT PO PRN (18:00)
[2018-01-02 05:10] LABS: Basophils # 0.1 K/mcL (0.0-0.2); Basophils % 0.6 %; Eosinophils # 0.3 K/mcL (0.0-0.6); Eosinophils % 3.7 %; Hemoglobin 13.3 g/dL (12.9-16.9); Immature Granulocytes % 0.1 % (0-4); Lymphocytes % 12.9 %; Mean Corpuscular HGB Conc 33.3 g/dL (31.6-35.5); Mean Corpuscular Hemoglobin 29.8 pg (28.0-33.3); Mean Corpuscular Volume 89.5 fL (83.0-100.0); Mean Platelet Volume 10.4 fL (9.4-12.4); Monocytes # 0.9 K/mcL (0.0-1.3); Monocytes % 11.7 %; Neutrophils # 5.5 K/mcL (1.6-8.9); Platelet Count 170 K/mcL (140-400); Red Blood Count 4.47 M/mcL (4.19-5.50); Red Cell Distribution Width 16.3 % (11.5-14.5)
[2018-01-02 05:26] LABS: INR 1.8; Prothrombin Time 19.2 Seconds (9.4-12.1)
[2018-01-02 05:34] LABS: BUN/Creatinine Ratio 20 (6-26); Blood Urea Nitrogen 24 mg/dL (8-23); Calcium 8.6 mg/dL (8.6-10.3); Carbon Dioxide 33 mEq/L (23-29); Chloride 103 mEq/L (98-107); Glucose 132 mg/dL (70-105); Magnesium 2.2 mg/dL (1.6-2.6); Osmolality,Calculated 298 (280-300); Sodium 141 mEq/L (136-145); eGFR For African Americans > 60 (> 60); eGFR For Non-African Americans 60 (> 60)
[2018-01-02] MEDS: Sennosides/Docusate Sodium TABLET PO SCH (07:53)
[2018-01-02] MEDS: Aspirin 81 MG TAB.CHEW PO SCH (07:53)
[2018-01-02] MEDS: Furosemide 40 MG/4 ML VIAL IVP SCH ×2 (07:54→16:57)
[2018-01-02] MEDS ORDERED: *HR* Phytonadione 5 MG TABLET PO ONE (10:26)
[2018-01-02 13:59] LABS: INR 1.8; Prothrombin Time 19.9 Seconds (9.4-12.1)
[2018-01-02] MEDS ORDERED: Heparin 1,000 UNITS/500 mL 500 ML ONE (14:20)
[2018-01-02] MEDS ORDERED: 0.9 % Sodium Chloride 1,000 ML ONE ×2 (14:20→14:50)
[2018-01-02] MEDS ORDERED: *HR* Heparin 10,000 UNIT/10 ML VIAL ONE (14:20)
[2018-01-02] MEDS ORDERED: ISOVUE-370 200 ML INFUS..BTL IV ONE (14:20)
[2018-01-02] MEDS ORDERED: Nitroglycerin 1,000 MCG/10 ML VIAL IV ONE (14:20)
[2018-01-02] MEDS ORDERED: *HR* Midazolam HCl 2 MG/2 ML VIAL ONE (14:56)
[2018-01-02] MEDS ORDERED: *HR* FentaNYL (PF) 100 MCG/2 ML VIAL ONE (14:57)
--- NOTE | 2018-01-02 15:04 | Pre-Sedation Evaluation ---
Pre-sedation evaluation - Pre-sedation checklist Date of procedure: 01/02/18 Procedure: left heart cath Recent Vitals: Last Vital Signs Temp 97.5 F L 01/02/18 11:21 Pulse 81 01/02/18 13:42 Resp 20 01/02/18 13:42 BP 124/73 01/02/18 11:21 Pulse Ox 97 01/02/18 13:42 H&P (including ROS) documented in medical record: Yes Previous reaction to sedatives/anesthetics: No Dietary Status: NPO after Midnight Dentition: dentures removed ASA Classification *see protocol: CLASS II-Mild systemic disease
--- NOTE | 2018-01-02 15:44 | Invasive Diagnostic Lab Proc ---
Name: Carlos Hickey Date of Study: 01/02/2018 Date: 1950 Ht: 72.0in Medical Record#: [id number] Age: 67 Wt: 210.10lb Gender: Male BSA: 2.18 Order #: [id number] BMI: 28.46 Physicians Procedure Physician: Jamilah Still MD Referring MD: Referring MD: Staff Name Position Time In Sites, Sugar RT (R) Monitor 02:34 PM Greta Marks RT (R) Scrub 02:34 PM Salina Ware RN Press Leader 02:34 PM Maria Elena Velasco RN Press Leader 02:34 PM Indications Indication Non-Stemi Procedures Performed Procedure L HRT ARTERY/VENTRICLE ANGIO Pre-Procedure Checklist Informed consent is complete signed and on chart. H&P is on chart. ID band is on and ID verified with patient. Patient NPO for procedure The procedure was described for the patient and questions were answered. Blood Pressure: 150/85 ECG is on chart. Rhythm: NSR Plan of Care Patient will tolerate the procedure without complications. Adequate level of comfort will be maintained. Hemodynamics will remain stable Patient will recover from procedure without complications. Respiratory function will be maintained. Cardiac rhythm will remain stable. Patient temperature will be maintained. Patient and/or family have verbalized understanding of the procedure. Patient Education Intravenous Access Time IV Size Location DC'd Fluid/Drip Rate Units RN 20g 1 /" Patent On Arrival Lt Hand 0.9NaCl 25 ml/hr Salina Ware RN Allergies nitroglycerin NO KNOWN ALLERGIES Vital Signs Time BP (mmHg) HR (bpm) O2 Sat. RR (bpm) LOC 02:49 PM / % 5 = Fully awake and oriented or at pre-proc level 02:49 PM / % 4 = Oriented but drowsy 03:06 PM / % 4 = Oriented but drowsy 02:54 PM 166 / 106 86 98 % 02:59 PM 160 / 111 85 100 % 03:04 PM 150 / 85 81 99 % 03:09 PM 146 / 90 77 99 % 03:14 PM 136 / 92 79 100 % 03:19 PM 147 / 98 111 98 % 03:24 PM 156 / 103 118 100 % 03:29 PM 168 / 109 96 100 % Procedural Medications Time Medication Dose Units Method Given By 02:49 PM Oxygen 2 L/min nasal cannula Salina Ware RN 03:06 PM Versed 1 mg Intravenous Salina Ware RN 03:06 PM Fentanyl 50 mcg Intravenous Salina Ware RN 03:08 PM Lidocaine 2% 10 ml Subcutaneous Jamilah Still MD ASA Classification: CLASS II- Mild systemic disease (i.e. well-controlled diabetes, hypertension, asthma, cigarette smoking) Anjelica Score Preprocedure Postprocedure Activity 2- Moves 4 extremities sustained head lift Activity 2- Moves 4 extremities sustained head lift Circulation 2- SBP +/= 20 points of pre-anesthetic level Circulation 2- SBP +/= 20 points of pre-anesthetic level Consciousness 2- Awake and alert oriented x 3 Consciousness 2- Awake and alert oriented x 3 O2 Saturation 2- Able to maintain O2 satruation of 92% on room air O2 Saturation 2- Able to maintain O2 satruation of 92% on room air Respiratory 2- Able to deep breathe and cough well Respiratory 2- Able to deep breathe and cough well Total Score 10 Total Score 10 Contrast Agent: Isovue Diagnostic Contrast: 49 ml Total Contrast: 49 ml Fluoro Dose: 399 mGy Activated Clotting Time Time Seconds to Clot 03:25 PM 199 Procedure Log Time Note Enter By 02:16 PM CathStat 02:34 PM Sugar Bridges RT (R) Position: Monitor Time in: 14:34 dsp 02:34 PM Greta Marks RT (R) Position: Scrub Time in: 14:34 dspell 02:34 PM Salina Ware RN Position: Press Leader Time in: 14:34 [email or web address] 02:34 PM Maria Elena Velasco RN Position: Press Leader Time in: 14:34 [email or web address] 02:34 PM Patient charges- Angio tray pack, Navilyst 3mm J, Pulse Oximetry and ACIST tubing and transducer dsp 02:48 PM Pt arrived to clinical lab specialist 2 at 14:48 tsites 02:48 PM Physician arrived 14:48 tsites 02:48 PM Meet and greet completed tsites 02:48 PM Sign in performed according to hospital policy. tsites 02:49 PM Procedure start 14:49 tsites 02:49 PM Time: 14:49 Oxygen on at 2 L/min per nasal cannula by Salina Ware RN tsites 02:49 PM Time: 14:49 Patient comfortable and pain free: Yes tsites 02:49 PM Time: 14:49LOC: 5 = Fully awake and oriented or at pre-proc level tsites 02:49 PM pt states no issues with nitroglycerin tsites 02:49 PM Clinical Presentation: Non-STEMI tsites 02:52 PM Vitals capture started with the following parameters, Patient=Adult, Interval=5 min, Initial Rturnebs=398 mmHg, Deflation Rate=5 mmHg, Cuff placed on Right Arm 02:52 PM Recorded ECG: HR=97 Condition=Condition 1 02:53 PM Hair removed from procedure site in holding area using clippers. Bilateral groin prepped with Chloraprep by Greta Marks (R), then patient was draped. Skin intact. tsites 02:54 PM Vitals capture started with the following parameters, Patient=Adult, Interval=5 min, Initial Toguobnk=223 mmHg, Deflation Rate=5 mmHg, Cuff placed on Right Arm 02:54 PM HR=86 bpm, HNUC=436/106 mmhg, SpO2=98.0 % 02:59 PM HR=85 bpm, PMOC=320/111 mmhg, ZcF4=673.0 % 03:04 PM HR=81 bpm, VZCY=031/85 mmhg, SpO2=99 % 03:06 PM Time: 14:49LOC: 4 = Oriented but drowsy tsites 03:06 PM Time: 14:49 Patient comfortable and pain free: Yes tsites 03:06 PM Time: 15:06 Versed 1 mg Intravenous Given by Salina Ware RN tsites 03:06 PM Time: 15:06 Fentanyl 50 mcg Intravenous Given by Salina Ware RN tsites 03:07 PM Time out performed according to hospital policy tsites 03:08 PM Time: 15:08 10 ml Lidocaine 2% to right groin Subcutaneous Given by Jamilah Still MD tsites 03:09 PM Unsuccessful access attempt # 1 into the right Femoral artery. Manual pressure applied to achieve hemostasis.. tsites 03:09 PM HR=77 bpm, EXOS=802/90 mmhg, SpO2=99 % 03:10 PM Access obtained by percutaneous puncture. 5Fr 10cm Micro intro kit sheath placed in right Femoral artery. [id number] tsites 03:10 PM 5cc of contrast injected tsites 03:10 PM Sheath exchanged for a 6 Fr 11 cm Cordis Cornelia sheath [id number] tsites 03:12 PM 5Fr FR 4 catheter inserted over the wire DNC tsites 03:12 PM 0.035 145cm Navilyst 3mmJ wire [id number] tsites 03:13 PM RCA angiography performed in multiple views. tsites 03:13 PM Recorded Pressure: Ao, HR=77, Condition=Condition 1 (Aorta) Ao 179/54/91 03:13 PM 0.035 260cm Navilyst 3mmJ wire [id number] tsites 03:13 PM 5Fr FL 4 catheter inserted over the wire DNC tsites 03:14 PM HR=79 bpm, AAHC=381/92 mmhg, RoJ9=602.0 % 03:15 PM LCA angiography performed in multiple views. tsites 03:15 PM Recorded Pressure: Ao, HR=77, Condition=Condition 1 (Aorta) Ao 136/79/107 03:16 PM act drawn tsites 03:19 PM DS=531 bpm, EGWN=187/98 mmhg, SpO2=98.0 % 03:20 PM Recorded Pressure: LV, PW=232, Condition=Condition 1 (Left Ventricle) LV 143/21/29 03:20 PM 5Fr Pigtail catheter inserted over the wire DN tsites 03:20 PM Catheter selectively placed in left ventricle tsites 03:21 PM Recorded Pressure: LV, HR=96, Condition=Condition 1 (Left Ventricle) LV 164/27/44 03:21 PM Time: 15:06 Patient comfortable and pain free: Yes tsites 03:21 PM Time: 15:06LOC: 4 = Oriented but drowsy tsites 03:21 PM Recorded Pressure: LV, Ao, HR=95, Condition=Condition 1 (Left Ventricle) LV 149/16/25, (Aorta) Ao 168/49/107 03:21 PM edp measured tsites 03:21 PM Catheter removed tsites 03:24 PM Coronary Dominance: right tsites 03:24 PM Bolus angiogram of right Femoral complete: 2 ml/sec for a total of 4 mls tsites 03:24 PM PW=656 bpm, RELS=596/103 mmhg, KwS7=817 % 03:24 PM Lesion found in Mid RCA. Pre Stenosis: 80 Pre MATT Flow: tsites 03:25 PM Lesion found in Distal RCA. Pre Stenosis: 100 Pre MATT Flow: tsites 03:25 PM Lesion found in Mid LAD. Pre Stenosis: 65 Pre MATT Flow: tsites 03:25 PM Lesion found in 1st Diagonal. Pre Stenosis: 85 Pre MATT Flow: tsites 03:25 PM At 15:25 the ACT was 199 seconds. tsites 03:27 PM Procedure completed at 15:27 tsites 03:27 PM Sign out completed: Radiation Dose 399 mGy Fluoro Time: 2.3 Isovue 370 - 200ml contrast 49 ml given by Jamilah Still MD. Complications: NoneCardiac Rehab Consult needed: NoConfirmed administered medications: Yes tsites 03:28 PM Isovue 370 - 200ml,1 Bottle(s) used. tsites 03:28 PM Sheath left in place to be pulled on floor/holding areaV+Pad tsites 03:28 PM Estimated Blood Loss: minimal tsites 03:28 PM Post ECG NSR tsites 03:28 PM Post Blood Pressure 156/103 tsites 03:28 PM 15:28 Post Pulses Bilateral DP & PT Doppler tsites 03:28 PM Information taught Cardiac Cath tsites 03:28 PM Education needs Procedure, Plan of Care, and Responsibilities of Patient in Care tsites 03:28 PM Learning barriers :None tsites 03:28 PM Education Methods Verbal tsites 03:28 PM Education evaluation Able to repeat information tsites 03:28 PM Site status No bleeding/hematoma - Rt Groin as reported by Greta Marks RT (R) at 15:28 tsites 03:28 PM Opsite applied tsites 03:29 PM HR=96 bpm, TYDE=378/109 mmhg, SeH0=008 % 03:31 PM Report given to ford AGUILLON Pt taken to 2N Room #3. 15:31 tsites 03:31 PM Delay to floor No tsites 03:31 PM Patient out of room: 15:31 tsites Complications Complication None Hemodynamics Pressures Site Systolic/A Wave Diastolic/V Wave Mean AO 179 54 91 AO 136 79 107 LV 143 21 29 LV 164 27 44 LV 149 16 25 AO 168 49 107 Post Procedure Information Blood Pressure: 156/103 mmHg Rhythm: NSR Post procedural instructions were given Closure Device Time Device Success/Fail 01/02/2018 3:31:00 PM Manual Compression Successful Site Checks Time Location Status Staff Sheath In? Note 03:28 PM Rt Groin No bleeding/hematoma Greta Marks RT (R) Pulses Time Site Pre-Procedure Post-Procedure Note Bilateral DP 2+ 3:28:00 PM Bilateral DP & PT Doppler Updated by Sugar Sites, RT (R) on 01/02/2018 3:34:13 PM [facility], RT electronically signed on 01/02/2018 3:36:42 PM with status of Final
[2018-01-02] MEDS: OXYCODONE Oral CONC 10 MG/0.5 ML ORAL.SYG SL PRN ×2 (16:07→20:32)
[2018-01-02] MEDS: Nitroglycerin 0.4 MG TAB.SUBL SL PRN ×2 (16:57→17:59)
[2018-01-02] MEDS: Heparin 25,000 UNIT/500 ML D5W 25,000 UNIT/500 ML BAG IVC SCH ×2 (17:07→21:22)
[2018-01-02] MEDS ORDERED: *HR* Atropine Sulfate 1 MG/10 ML SYRINGE ONE (17:37)
[2018-01-02] MEDS ORDERED: Ondansetron 4 MG/2 ML VIAL IVP PRN (20:51)
--- NOTE | 2018-01-02 20:51 | Internal Med Progress Note ---
Date of Encounter: 01/02/18 Time of Encounter: 19:00 - Assessment and plan (1) NSTEMI (non-ST elevated myocardial infarction) Status: Acute Assessment and plan: He has severe to vessel CAD. Conservative treatment. Cardiologies recommending carvedilol instead of metoprolol. Will continue aspirin, clopidogrel and atorvastatin. The patient is stable at this time. IV heparin has been discontinued. He started on warfarin. (2) Acute on chronic systolic heart failure Status: Acute Assessment and plan: His ejection fraction is 30 to 35%. He is on carvedilol. FROY inhibitor or ARB will be started by cardiology later. (3) CAD (coronary artery disease) Status: Acute Assessment and plan: See my note above. Qualifiers: Coronary Disease-Associated Artery/Lesion type: [place] artery [place] vs. transplanted heart: [place] heart Associated angina: without angina Qualified Code(s): I25.10 - Atherosclerotic heart disease of [place] coronary artery without angina pectoris (4) Chronic atrial fibrillation Status: Chronic Assessment and plan: His heart rate is under fair control. His own carvedilol. He is on warfarin. - Time Spent With Patient Total time spent is greater than 50% in coordination of care (as documented) at patient's floor/unit and/or counseling patient: - Subjective Interval history: The patient had cardiac catheterization today. Denies chest pain. Denies difficulty breathing. Denies abdominal pain, nausea and vomiting. He makes fair amounts of urine. - Constitutional Vitals: Temp Pulse Resp BP Pulse Ox 98.2 F 106 20 145/99 96 01/02/18 19:03 01/02/18 19:05 01/02/18 19:05 01/02/18 19:05 01/02/18 19:05 General appearance: Present: cooperative, A&O X 3, pleasant, no acute distress, answers questions appropriately - Respiratory Respiratory exam: Present: CTAB. Absent: accessory muscle use, rales, rhonchi, wheezes - Cardiovascular Cardiovascular exam: Present: RRR, +S1, +S2. Absent: diastolic murmur, gallop, rubs, systolic murmur - GI/Abdominal GI/Abdominal exam: Present: normal bowel sounds, soft, no peritoneal signs. Absent: distended, tenderness - Skin Skin exam: Present: dry, intact Internal Medicine: Result - Labs CBC & Chem 7: 01/03/18 01:24 01/03/18 01:24 Labs: Short CBC 01/02/18 Range/Units 04:52 WBC 7.8 (4.3-11.1) K/mcL Hgb 13.3 (12.9-16.9) g/dL Hct 40.0 (37.5-50.1) % Plt Count 170 (140-400) K/mcL Neutrophils # 5.5 (1.6-8.9) K/mcL BMP 01/02/18 04:52 Sodium 141 Potassium 4.0 Chloride 103 Carbon Dioxide 33 H BUN 24 H Creatinine 1.21 Glucose 132 H Calcium 8.6 - ABG Interpretation ABG results: PT/INR, D-dimer PT 19.9 Seconds (9.4-12.1) H 01/02/18 13:43 D-Dimer 1218 ng/mLFEU (0-500) H 12/31/17 23:58 Consult Discharge Plan - Plan Instructions: Myocardial Infarction (DC), Chronic Obstructive Pulmonary Disease (DC) Additional Instructions: HE WILL CONTINUE HIS PREVIOUS DOSE OF COUMADIN/PRO TIME TESTING. STARTED AT 2 L/MIN NC OXYGEN. Referrals: Kamar Mcguire MD [Partnered Physician] - (office will call patient with follow up appointment) Tung Torres DO [Primary Care Provider] - 01/09/18 4:15 pm Prescriptions: Nitroglycerin 0.4 mg SL Q5MIN PRN #25 tab.subl PRN Reason: Chest Pain Carvedilol [Coreg] 12.5 mg PO BIDWM #60 tablet Furosemide [Lasix] 20 mg PO BID #60 tablet
[2018-01-02] MEDS ORDERED: Nitroglycerin 25 MG/250 ML INFUS..BTL IVC SCH (21:00)
[2018-01-03 01:50] LABS: Hematocrit 39.5 % (37.5-50.1); Hemoglobin 13.2 g/dL (12.9-16.9); Mean Corpuscular HGB Conc 33.4 g/dL (31.6-35.5); Mean Corpuscular Hemoglobin 29.8 pg (28.0-33.3); Mean Corpuscular Volume 89.2 fL (83.0-100.0); Red Blood Count 4.43 M/mcL (4.19-5.50)
[2018-01-03 01:51] LABS: Basophils % 0.4 %; Immature Granulocytes % 0.4 % (0-4); Lymphocytes # 0.7 K/mcL (0.6-4.6); Lymphocytes % 7.6 %; Mean Platelet Volume 10.2 fL (9.4-12.4); Monocytes # 0.6 K/mcL (0.0-1.3); Monocytes % 7.1 %; Neutrophils # 7.2 K/mcL (1.6-8.9); Platelet Count 175 K/mcL (140-400); Red Cell Distribution Width 16.1 % (11.5-14.5); Segmented Neutrophils % 84.5 %
[2018-01-03 01:57] LABS: INR 1.7; Prothrombin Time 18.3 Seconds (9.4-12.1)
[2018-01-03 02:02] LABS: BUN/Creatinine Ratio 23 (6-26); Blood Urea Nitrogen 23 mg/dL (8-23); Calcium 8.7 mg/dL (8.6-10.3); Carbon Dioxide 31 mEq/L (23-29); Chloride 102 mEq/L (98-107); Glucose 157 mg/dL (70-105); Osmolality,Calculated 293 (280-300); Potassium 3.9 mEq/L (3.5-5.1); Sodium 138 mEq/L (136-145); eGFR For African Americans > 60 (> 60); eGFR For Non-African Americans > 60 (> 60)
[2018-01-03] MEDS: Aspirin 81 MG TAB.CHEW PO SCH (08:06)
[2018-01-03] MEDS: Sennosides/Docusate Sodium TABLET PO SCH (08:06)
[2018-01-03] MEDS: Furosemide 40 MG/4 ML VIAL IVP SCH (08:07)
--- NOTE | 2018-01-03 09:05 | Cardiology Progress Note ---
Date of Encounter: 01/03/18 Time of Encounter: 09:03 Assessment and Plan (1) NSTEMI (non-ST elevated myocardial infarction) Current Visit: Yes Status: Acute S/p [facility] for elevated troponin up to 1.11. 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 Moderate non obstructive CAD otherwise. Final report pending. Previous LAD stent patent. No intervention. No complications. Cardiac rehab consulted. Continue asa, statin, and bb. Okay to resume coumadin. He denies chest pain. Patient follows with Dr. Tolliver and he states he will make f/u appt in 1-2 weeks. Please call with questions. (2) CAD (coronary artery disease) Current Visit: Yes Status: Acute Qualifiers: Coronary Disease-Associated Artery/Lesion type: [place] artery [place] vs. transplanted heart: [place] heart Associated angina: without angina Qualified Code(s): I25.10 - Atherosclerotic heart disease of [place] coronary artery without angina pectoris (3) Ischemic cardiomyopathy Current Visit: No Status: Chronic H/o ICMP, EF 30%. ICD in place. Currently euvolemic on exam. Continue carvedilol. No acI due to b/p marginally low and GUIDO during stay. Consider starting in out-pt setting. CHF education, low sodium diet and daily weights. (4) Chronic atrial fibrillation Current Visit: Yes Status: Chronic Continue rate control, heparin bridge with h/o CVA. Okay to restart coumadin. Pharmacy to dose. Discussion w patient/family: The assessment and plan as outlined above was discussed with the patient and/or family members who expressed understanding and agreement. All questions were answered. Thank you for involving us in the care of your patient. Please call with any questions. Subjective Principal diagnosis: CAD Interval history: Mr. Hickey is s/p [facility]. There was no complication from his procedure. Objective Vital Signs, Last 4 Hours Temp Pulse Resp BP Pulse Ox 01/03/18 06:41 97.6 F 73 18 117/83 96 General: Conversant, No Apparent Distress HEENT: Atraumatic, Normocephaly, Mucus Membranes Moist Neck: No JVD, Normal carotid pulses Cardiac: Reg Rate and Rhythm, Normal S1 and S2, No Murmur Lungs: Normal Breath Sounds, No Wheeze, Rales, Rhonchi Neuro: Alert and responsive, No focal deficits noted Abdomen: Soft, Non-Tender, Other (large hernia) Skin: No rashes noted on visualized skin Musculoskeletal: No Chest Wall Tenderness Extremities: No Clubbing, No Cyanosis, No Edema, Normal Pulses, Other (right groin dressing removed. No hematoma or redness.) Results 01/03/18 01:24 01/03/18 01:24 Lab Results 01/02/18 01/03/18 01/03/18 13:43 01:24 01:24 WBC Hgb Hct Plt Count INR 1.8 1.7 APTT 70.0 H Sodium Potassium Chloride Carbon Dioxide BUN Creatinine Glucose Calcium 01/03/18 01/03/18 01/03/18 01:24 01:24 07:36 WBC 8.5 Hgb 13.2 Hct 39.5 Plt Count 175 INR APTT 83.3 H Sodium 138 Potassium 3.9 Chloride 102 Carbon Dioxide 31 H BUN 23 Creatinine 1.02 Glucose 157 H Calcium 8.7 - Imaging and Cardiology Echo: report reviewed Cardiac cath: report reviewed - EKG Interpretation EKG results cardiology: personally reviewed Consult Discharge Plan - Plan Referrals: Kamar Mcguire MD [Partnered Physician] - (office will call patient with follow up appointment) Tung Torres DO [Primary Care Provider] - 01/09/18 4:15 pm
--- NOTE | 2018-01-03 15:06 | Discharge Summary ---
- NOTES TO OUTPATIENT PROVIDER Notes to Outpatient Provider: WE STARTED THIS PT ON OXYGEN; HAS ADVANCED COPD/ CHR RESP FAILURE Orders not resulted at time of discharge: Pending orders 01/02/18 06:45 Left Heart Cath [CL Cardiac Catheterization] [CL] Routine 01/02/18 20:43 EKG [ECG 12 lead ECG] [ECG] Stat 01/04/18 04:00 Prothrombin Time INR [COAG] AM 0400 01/05/18 04:00 Prothrombin Time INR [COAG] AM 0400 01/06/18 04:00 Prothrombin Time INR [COAG] AM 0400 01/07/18 04:00 Prothrombin Time INR [COAG] AM 0400 01/08/18 04:00 Prothrombin Time INR [COAG] AM 0400 Date of Encounter: 01/03/18 Time of Encounter: 15:05 - Discharge Diagnosis (1) NSTEMI (non-ST elevated myocardial infarction) Priority: Primary Status: Acute (2) Acute on chronic systolic heart failure Priority: Secondary Status: Acute (3) CAD (coronary artery disease) Priority: Secondary Status: Acute Qualifiers: Coronary Disease-Associated Artery/Lesion type: koi artery [place] vs. transplanted heart: koi heart Associated angina: without angina Qualified Code(s): I25.10 - Atherosclerotic heart disease of koi coronary artery without angina pectoris (4) COPD (chronic obstructive pulmonary disease) Priority: Secondary Status: Acute Qualifiers: COPD type: unspecified COPD Qualified Code(s): J44.9 - Chronic obstructive pulmonary disease, unspecified (5) Chronic atrial fibrillation Priority: Secondary Status: Chronic (6) Hypertension Priority: Secondary Status: Acute Qualifiers: Hypertension type: essential hypertension Qualified Code(s): I10 - Essential (primary) hypertension Hospital course: Mr. Hickey is a 67 year old male -- to be completed later, as an addendum Discharge discussed with: patient, nurse, case management - Time Spent with Patient Total time spent providing and/or coordinating discharge services: Greater than 30 minutes - Discharge Medications Prescriptions: Nitroglycerin 0.4 mg SL Q5MIN PRN #25 tab.subl PRN Reason: Chest Pain Carvedilol [Coreg] 12.5 mg PO BIDWM #60 tablet Furosemide [Lasix] 20 mg PO BID #60 tablet Home Medications: Aspirin Enteric Coated [Aspirin EC] 81 mg PO DAILY 12/30/15 [History] Atorvastatin [Lipitor] 40 mg PO QPM 12/30/15 [History] Carvedilol [Coreg] 12.5 mg PO BID 12/30/15 [History] Docusate [Colace] 100 mg PO BID 12/30/15 [History] Ipratropium/Albuterol Sulfate [Combivent Respimat Inhal [place]] 2 puff IH QID [History] Quinapril HCl [Accupril] 10 mg PO DAILY 12/30/15 [History] Calcium Polycarbophil [Fibercon] 1,250 mg PO DAILY #60 tablet 01/04/16 [Rx] Sennosides/Docusate Sodium [Senna Plus] 1 each PO DAILY #30 tablet 01/04/16 [Rx] Potassium Chloride [K-Tab ER] 20 meq PO DAILY 01/01/18 [History] Carvedilol [Coreg] 12.5 mg PO BIDWM #60 tablet 01/03/18 [Rx] Furosemide [Lasix] 20 mg PO BID #60 tablet 01/03/18 [Rx] Nitroglycerin 0.4 mg SL Q5MIN PRN #25 tab.subl 01/03/18 [Rx] Allergies/Adverse Reactions: 3 Allergy/AdvReac Type Severity Reaction Status Date / Time nitroglycerin AdvReac Hypotension Verified 12/30/15 14:26 Date of admission: 01/01/18 02:28 Primary care physician: Luis Felipe Moore Consults: 01/01/18 02:29 Consult to Cardiology [CONS] Routine Comment: Consulting Provider: Cardiology Tiffanie Reason for Consult: NSTEMI Call Completed: No 01/02/18 08:04 Consult to Cardiac Rehabilitation-Phase1 [CONS] Routine Comment: Reason for Consult: NSTEMI Call Completed: No Discharging clinician: Tony Bright Anticipated date of discharge: 01/03/18 - Constitutional Vitals: Temp Pulse Resp BP Pulse Ox 98.4 F 61 17 101/64 94 01/03/18 10:59 01/03/18 10:59 01/03/18 10:59 01/03/18 10:59 01/03/18 11:45 General appearance: Present: cooperative, A&O X 3, pleasant, no acute distress, answers questions appropriately - Respiratory Respiratory exam: Present: CTAB. Absent: respiratory distress, rhonchi, wheezes - Cardiovascular Cardiovascular exam: Present: RRR. Absent: diastolic murmur, gallop, systolic murmur - GI/Abdominal GI/Abdominal exam: Present: soft Additional comments: HAS BIG VENTRAL HERNIA. - Patient Status Disposition: Home, Self-Care Condition: Good Functional capacity at discharge: independent ambulation Overall status at discharge: patient is back to baseline - Discharge Instructions Instructions: Myocardial Infarction (DC), Chronic Obstructive Pulmonary Disease (DC) Follow Up With: Kamar Mcguire MD [Partnered Physician] - (office will call patient with follow up appointment) Tung Torres DO [Primary Care Provider] - 01/09/18 4:15 pm Additional Instructions: HE WILL CONTINUE HIS PREVIOUS DOSE OF COUMADIN/PRO TIME TESTING. STARTED AT 2 L/MIN NC OXYGEN. - Diet and Activity Activity: resume usual activities as tolerated - VTE Deep Vein Thrombosis/Pulmonary Embolism Present on Admission: No
[2018-01-03 16:17] VITALS: BP 96/65
[2018-01-03] MEDS ORDERED: *HR* Warfarin 2.5 MG TABLET PO ONE (18:00)
[2018-01-03] MEDS ORDERED: Warfarin perPT PO PRN (18:00)
--- NOTE | 2018-01-04 08:13 | Electrocardiograph Report ---
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
--- NOTE | 2018-01-04 08:22 | Electrocardiograph Report ---
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
== END 2018-01-03 17:43 | disposition home or self-care (01) | DRG 280 ==
LOC: EMEROO 23:29 → ICNU 23:29 → SUATTDRO 01-01 02:28 → ICNU 01-01 02:40 → 2NNU 01-01 13:15
PROVIDERS: ADMIT Internal Medicine; ATTEND Internal Medicine

== ENCOUNTER 2020-07-05 09:56 | Inpatient (IN) ==
[2020-07-05] MEDS ORDERED: Oxymetazoline Nasal SPRAY BOTTLE NS ONE (10:22)
[2020-07-05 10:49] LABS: Basophils # 0.1 K/mcL (0.0-0.2); Basophils % 0.8 %; Eosinophils # 0.2 K/mcL (0.0-0.6); Eosinophils % 2.4 %; Hematocrit 44.4 % (37.5-50.1); Hemoglobin 13.8 g/dL (12.9-16.9); Immature Granulocytes % 0.3 % (0-4); Lymphocytes # 1.1 K/mcL (0.6-4.6); Lymphocytes % 11.5 %; Mean Corpuscular HGB Conc 31.1 g/dL (31.6-35.5); Mean Corpuscular Hemoglobin 28.5 pg (28.0-33.3); Mean Corpuscular Volume 91.5 fL (83.0-100.0); Mean Platelet Volume 10.5 fL (9.4-12.4); Monocytes # 0.7 K/mcL (0.0-1.3); Monocytes % 7.6 %; Neutrophils # 7.6 K/mcL (1.6-8.9); Platelet Count 244 K/mcL (140-400); Red Blood Count 4.85 M/mcL (4.19-5.50); Red Cell Distribution Width 15.1 % (11.5-14.5); Segmented Neutrophils % 77.4 %; White Blood Count 9.8 K/mcL (4.3-11.1)
[2020-07-05 10:50] LABS: INR 3.2; Prothrombin Time 35.6 Seconds (9.4-12.1)
[2020-07-05 10:52] LABS: Activated Partial Thrombo Time 36.5 Seconds (26.0-36.0)
[2020-07-05] MEDS ORDERED: Ipratropium/Albuterol Neb 3 ML IH ONE (11:20)
[2020-07-05 12:46] LABS: Hematocrit 45.9 % (37.5-50.1); Hemoglobin 14.3 g/dL (12.9-16.9)
[2020-07-05 13:25] LABS: BUN/Creatinine Ratio 40 (6-26); Blood Urea Nitrogen 51 mg/dL (8-23); Calcium 8.8 mg/dL (8.6-10.3); Carbon Dioxide 26 mEq/L (23-29); Chloride 103 mEq/L (98-107); Glucose 160 mg/dL (70-105); Osmolality,Calculated 303 (280-300); Potassium 4.8 mEq/L (3.5-5.1); Sodium 138 mEq/L (136-145); eGFR For African Americans > 60 (> 60); eGFR For Non-African Americans 57 (> 60)
[2020-07-05] MEDS ORDERED: carvediloL 6.25 MG TABLET PO STA (14:38)
[2020-07-05] MEDS ORDERED: Naloxone 0.4 MG/ML INJ IVP PRN (15:32)
[2020-07-05 19:41] LABS: Hematocrit 45.7 % (37.5-50.1); Hemoglobin 14.5 g/dL (12.9-16.9)
[2020-07-05] MEDS: Ipratropium/Albuterol Neb 3 ML IH SCH (20:41)
[2020-07-05] MEDS: carvediloL 6.25 MG TABLET PO SCH (20:53)
[2020-07-05] MEDS: Ondansetron 4 MG/2 ML VIAL IVP PRN (22:54)
[2020-07-06] MEDS: Ipratropium/Albuterol Neb 3 ML IH SCH ×5 (00:33→22:28)
[2020-07-06 02:49] LABS: Hematocrit 42.6 % (37.5-50.1); Hemoglobin 13.5 g/dL (12.9-16.9); Mean Corpuscular HGB Conc 31.7 g/dL (31.6-35.5); Mean Corpuscular Hemoglobin 29.2 pg (28.0-33.3); Mean Platelet Volume 10.5 fL (9.4-12.4); Platelet Count 271 K/mcL (140-400); Red Blood Count 4.63 M/mcL (4.19-5.50); Red Cell Distribution Width 15.1 % (11.5-14.5); White Blood Count 13.5 K/mcL (4.3-11.1)
[2020-07-06 02:56] LABS: INR 2.9; Prothrombin Time 32.8 Seconds (9.4-12.1)
[2020-07-06 03:09] LABS: BUN/Creatinine Ratio 43 (6-26); Blood Urea Nitrogen 59 mg/dL (8-23); Carbon Dioxide 24 mEq/L (23-29); Chloride 103 mEq/L (98-107); Glucose 145 mg/dL (70-105); Osmolality,Calculated 305 (280-300); Potassium 4.6 mEq/L (3.5-5.1); Sodium 138 mEq/L (136-145); eGFR For African Americans > 60 (> 60); eGFR For Non-African Americans 51 (> 60)
[2020-07-06] MEDS ORDERED: carvediloL 6.25 MG TABLET PO SCH (08:00)
[2020-07-06] MEDS: carvediloL 6.25 MG TABLET PO SCH (08:44)
[2020-07-06] MEDS ORDERED: Nitroglycerin 0.4 MG TAB.SUBL SL PRN (08:50)
[2020-07-06] MEDS ORDERED: Furosemide 40 MG TABLET PO SCH ×2 (09:00→18:00)
[2020-07-06] MEDS ORDERED: lisinopriL 10 MG TABLET PO SCH (09:00)
[2020-07-06] MEDS ORDERED: Spironolactone 25 MG TABLET PO SCH (09:00)
[2020-07-06] MEDS: Sennosides/Docusate Sodium TABLET PO SCH ×2 (11:10→20:36)
[2020-07-06] MEDS ORDERED: 0.9 % Sodium Chloride 250 ML IVC ONE ×3 (11:56→14:15)
[2020-07-06] MEDS ORDERED: 0.9 % Sodium Chloride 250 ML ONE (11:58)
[2020-07-07] MEDS ORDERED: Ibuprofen 400 MG TABLET PO ONE (02:12)
[2020-07-07 02:38] LABS: Basophils # 0.1 K/mcL (0.0-0.2); Basophils % 0.5 %; Eosinophils # 0.1 K/mcL (0.0-0.6); Hematocrit 34.9 % (37.5-50.1); Immature Granulocytes % 0.5 % (0-4); Lymphocytes # 1.5 K/mcL (0.6-4.6); Lymphocytes % 13.2 %; Mean Corpuscular HGB Conc 31.5 g/dL (31.6-35.5); Mean Corpuscular Hemoglobin 28.8 pg (28.0-33.3); Mean Corpuscular Volume 91.4 fL (83.0-100.0); Mean Platelet Volume 10.7 fL (9.4-12.4); Monocytes # 1.2 K/mcL (0.0-1.3); Monocytes % 10.8 %; Neutrophils # 8.1 K/mcL (1.6-8.9); Platelet Count 207 K/mcL (140-400); Red Blood Count 3.82 M/mcL (4.19-5.50); Red Cell Distribution Width 15.3 % (11.5-14.5)
[2020-07-07 02:59] LABS: Troponin I 0.05 ng/mL (< 0.04)
[2020-07-07 03:03] LABS: Calcium 8.3 mg/dL (8.6-10.3); Magnesium 1.8 mg/dL (1.6-2.6); Phosphorous 3.7 mg/dL (2.7-4.5); Potassium 4.2 mEq/L (3.5-5.1)
[2020-07-07] MEDS: Ipratropium/Albuterol Neb 3 ML IH SCH ×4 (04:10→21:59)
[2020-07-07] MEDS ORDERED: 0.9 % Sodium Chloride 250 ML IVC ONE (05:20)
[2020-07-07] MEDS ORDERED: 0.9 % Sodium Chloride 1,000 ML IVC SCH ×2 (07:15→09:02)
[2020-07-07] MEDS: Sennosides/Docusate Sodium TABLET PO SCH ×2 (08:33→19:54)
[2020-07-07] MEDS ORDERED: Perflutren Lipid Microsphere 1.3 ML in 0.9 % Sodium Chloride 8.7 ML IVP PRN (09:01)
[2020-07-07] MEDS: Aspirin Enteric Coated 81 MG Tablet PO SCH (09:18)
[2020-07-07 10:13] LABS: Hematocrit 34.7 % (37.5-50.1)
[2020-07-07 10:15] LABS: INR 2.5; Prothrombin Time 28.1 Seconds (9.4-12.1)
[2020-07-07] MEDS: Ondansetron 4 MG/2 ML VIAL IVP PRN ×2 (11:50→19:54)
[2020-07-08 01:45] LABS: Basophils % 0.5 %; Eosinophils # 0.1 K/mcL (0.0-0.6); Eosinophils % 1.4 %; Hematocrit 31.3 % (37.5-50.1); Hemoglobin 10.2 g/dL (12.9-16.9); Immature Granulocytes % 0.3 % (0-4); Lymphocytes # 0.9 K/mcL (0.6-4.6); Lymphocytes % 14.2 %; Mean Corpuscular HGB Conc 32.6 g/dL (31.6-35.5); Mean Corpuscular Hemoglobin 29.6 pg (28.0-33.3); Mean Corpuscular Volume 90.7 fL (83.0-100.0); Mean Platelet Volume 10.7 fL (9.4-12.4); Monocytes # 0.7 K/mcL (0.0-1.3); Monocytes % 10.9 %; Neutrophils # 4.7 K/mcL (1.6-8.9); Platelet Count 169 K/mcL (140-400); Red Blood Count 3.45 M/mcL (4.19-5.50); Segmented Neutrophils % 72.7 %; White Blood Count 6.4 K/mcL (4.3-11.1)
[2020-07-08 02:04] LABS: Calcium 7.9 mg/dL (8.6-10.3); Magnesium 1.9 mg/dL (1.6-2.6); Phosphorous 3.1 mg/dL (2.7-4.5); Potassium 3.9 mEq/L (3.5-5.1)
[2020-07-08] MEDS: Ipratropium/Albuterol Neb 3 ML IH SCH ×2 (03:19→09:18)
[2020-07-08] MEDS: Aspirin Enteric Coated 81 MG Tablet PO SCH (08:43)
[2020-07-08] MEDS: Sennosides/Docusate Sodium TABLET PO SCH (08:43)
[2020-07-08 11:38] LABS: INR 1.7; Prothrombin Time 19.8 Seconds (9.4-12.1)
[2020-07-08 12:17] VITALS: BP 121/72
== END 2020-07-08 12:33 | disposition home or self-care (01) | DRG 150 ==
LOC: 3BNU 09:56 → EMEROOARM 09:56 → SUATTDRO 14:45 → 3BNU 15:32 → SUATTDRO 07-07 10:01
PROVIDERS: ADMIT Student in an Organized Health Care Education/Training Program; ATTEND General Practice